=== PATIENT | female | born 1975 | race Caucasian/White ===

== ENCOUNTER 2018-04-13 22:27 | Observation (INO) | payer MEDICARE, MEDICAID ==
[2018-04-13] MEDS ORDERED: HYDROmorphone 1 MG/ML Syringe IVPUSH ONE (23:01)
[2018-04-13] MEDS ORDERED: Ketorolac 30 MG/ML SDV IVPUSH ONE (23:01)
--- NOTE | 2018-04-13 23:07 | EDM.PDOC ---
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 She thinks it is an ovarian cyst as she has had them before. She has alsohad kidney stones before but says this feels more like the cyst. She feels pressure and dysuria. She has taken oxycodone and aleve but not helping. 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: Other Medication(s) Other Treatments POEM WRITER: oxycodone - Related Data Allergies Allergy/AdvReac Type Severity Reaction Status Date / Time aspirin Allergy UNKNOWN Verified 04/13/18 22:29 barium iodide [Barium Iodide] Allergy UNKNOWN Verified 04/13/18 22:29 codeine Allergy UNKNOWN Verified 04/13/18 22:29 cortisone [Cortisone] Allergy UNKNOWN Verified 04/13/18 22:29 erythromycin base Allergy UNKNOWN Verified 04/13/18 22:29 [Erythromycin Base] latex Allergy UNKNOWN Verified 04/13/18 22:29 Latex, Natural Rubber Allergy Other Verified 04/13/18 22:29 phenobarbital Allergy UNKNOWN Verified 04/13/18 22:29 prochlorperazine edisylate Allergy UNKNOWN Verified 04/13/18 22:29 [From Compazine] prochlorperazine maleate Allergy UNKNOWN Verified 04/13/18 22:29 [From Compazine] suture Allergy Hives Verified 04/13/18 22:29 bee sting Allergy UNKNOWN Uncoded 03/29/18 12:16 seafood Allergy UNKNOWN Uncoded 03/29/18 12:16 Home Meds: Home Meds Albuterol Sulfate [Albuterol Sulfate HFA] 2 puff IH Q6H PRN 06/17/13 [History] Albuterol/Ipratropium [Combivent] 2 puff INH QID PRN 06/17/13 [History] Amitriptyline [Elavil] 100 mg PO BEDTIME 06/17/13 [History] Calcium Carbonate/Vitamin D3 [Calcium 600 + Vit D 400] 1 each PO DAILY 06/17/13 [History] Docusate Sodium [Stool Softener] 200 mg PO DAILY 06/17/13 [History] Esomeprazole [NexIUM] 40 mg PO ACBREAKFAST 06/17/13 [History] Gabapentin [Neurontin] 800 mg PO DAILY@1100 06/17/13 [History] Multivit-Min/FA/Lycopene/Lut [Centrum Silver] 1 each PO BEDTIME 06/17/13 [ History] Ondansetron [Ondansetron ODT] 8 mg PO BID PRN 06/17/13 [History] Orphenadrine [Norflex] 100 mg PO BID 06/17/13 [History] Potassium 99 mg PO DAILY 06/17/13 [History] Pregabalin [Lyrica] 150 mg PO BEDTIME 06/17/13 [History] Ranitidine [Zantac] 150 mg PO BEDTIME 06/17/13 [History] Rizatriptan [Maxalt] 10 mg PO ASDIRECTED PRN 06/17/13 [History] Sertraline [Zoloft] 200 mg PO BEDTIME 06/17/13 [History] Torsemide [Demadex] 20 mg PO BID 06/17/13 [History] diphenhydrAMINE [Benadryl] 50 mg PO DAILY PRN 06/17/13 [History] traZODone 200 mg PO BEDTIME 06/17/13 [History] Pentosan Polysulfate Sodium [Elmiron] 100 mg PO BID 10/25/15 [History] fentaNYL [Fentanyl] 50 mcg TOP Q72H 10/25/15 [History] Gabapentin [Neurontin] 1,600 mg PO BEDTIME 03/27/16 [History] SUMAtriptan [Imitrex] 6 mg SUBCUT ONETIME PRN 03/27/16 [History] buPROPion [buPROPion XL] 300 mg PO DAILY 03/27/16 [History] Scopolamine [Transderm-Scop] 1.5 mg TRDERM Q72H PRN 03/28/16 [History] Cholecalciferol (Vitamin D3) [Vitamin D] 5,000 unit PO BID 08/28/17 [History] Fluconazole [Diflucan] 150 mg PO ASDIRECTED PRN 08/28/17 [History] Naloxegol Oxalate [Movantik] 25 mg PO DAILY 08/28/17 [History] oxyCODONE 5 mg PO TID PRN 08/28/17 [History] Oxybutynin Chloride [Oxybutynin Chloride ER] 15 mg PO BEDTIME 08/30/17 [History] Diclofenac Sodium [Voltaren] 1 gm TOP BID PRN 12/04/17 [History] Fexofenadine/Pseudoephedrine [Yokasta-D 24 Hour Tablet] 1 each PO DAILY [History] Fluticasone Propionate [Flonase] 1 spray BELEM DAILY 12/04/17 [History] Metoclopramide HCl [Reglan] 10 mg PO Q8HR PRN #10 tablet 12/04/17 [Rx] Willsons Solution 5 ml NASBOTH BID 12/04/17 [History] Past Medical History HEENT History: Reports: Impaired Vision Other HEENT History: polyps to R nostril Cardiovascular History: Reports: None Respiratory History: Reports: Asthma, Bronchitis, Recurrent Gastrointestinal History: Reports: Chronic Constipation, GERD, Hemorrhoids Genitourinary History: Reports: Neurogenic Bladder, Other (See Below) Other Genitourinary History: Periodic self cath's. 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 Oncologic (Cancer) History: Reports: Leukemia, Other (See Below) Other Oncologic History: myeloproliferic disorder Dermatologic History: Reports: Psoriasis - Infectious Disease History Infectious Disease History: Reports: Chicken Pox Other Infectious Disease History: hx of [place] 2009 - Past Surgical History Cardiovascular Surgical History: Reports: Other (See Below) GI Surgical History: Reports: Appendectomy, Cholecystectomy, Lysis of Adhesions , Other (See Below) Neurological Surgical History: Reports: Other (See Below) Musculoskeletal Surgical History: Reports: Arthroscopic Knee, Carpal Tunnel, Other (See Below) Social & Family History - Family History Family Medical History: Noncontributory - Caffeine Use Caffeine Use: Reports: None ED ROS GENERAL - Review of Systems Review Of Systems: See Below Constitutional: Denies: Fever, Malaise, Weakness HEENT: Denies: Throat Pain, Vision Change Respiratory: Denies: Shortness of Breath, Cough Cardiovascular: Denies: Chest Pain, Syncope GI/Abdominal: Reports: Abdominal Pain. Denies: Black Stool, Bloody Stool, Constipation, Diarrhea, Vomiting : Reports: Flank Pain. Denies: Dysuria, Hematuria Musculoskeletal: Reports: No Symptoms Skin: Denies: Cyanosis, Jaundice, Mottled, Pallor, Diaphoresis Neurological: Denies: Confusion, Dizziness, Seizure, Syncope, Weakness Psychiatric: Denies: Agitation ED EXAM, GI/ABD - Physical Exam Exam: See Below Exam Limited By: No Limitations General Appearance: Alert, WD/WN, No Apparent Distress Eyes: Bilateral: Normal Appearance, EOMI Ears: Normal External Exam, Hearing Grossly Normal Nose: Normal Inspection, No Blood Throat/Mouth: Normal Inspection, Normal Lips, Normal Voice, No Airway Compromise Head: Atraumatic, Normocephalic Neck: Normal Inspection, Full Range of Motion Respiratory/Chest: No Respiratory Distress, Lungs Clear, Normal Breath Sounds, No Accessory Muscle Use Cardiovascular: Regular Rate, Rhythm, No Murmur GI/Abdominal Exam: Normal Bowel Sounds, Soft, No Organomegaly, Guarding, Tender (midepigastric, periumbilical primarily and RLQ). No: Rigid Back Exam: Normal Inspection, Full Range of Motion, CVA Tenderness (L) (mild). No: CVA Tenderness (R) Extremities: Normal Inspection, Normal Range of Motion Neurological: Alert, Oriented, Normal Cognition, No Motor/Sensory Deficits Psychiatric: Normal Affect, Normal Mood, Anxious Skin Exam: Warm, Dry, Intact, Normal Color, No Rash Course - Vital Signs Last Recorded V/S: Last Vital Signs Temp 98.3 F 04/14/18 11:00 Pulse 83 04/14/18 11:00 Resp 20 04/14/18 11:00 BP 88/52 L 04/14/18 11:00 Pulse Ox 93 L 04/14/18 11:00 - Orders/Labs/Meds Orders: Active Orders 24 hr Category Date Time Status Abdomen Pelvis w Cont [CT] Stat Exams 04/13/18 23:50 Taken UA W/MICROSCOPIC [URIN] Stat Lab 04/13/18 22:50 Ordered Labs: Laboratory Tests 04/13/18 Range/Units 10:45 Lipase 76 (73-393) U/L Meds: Medications Discontinued Medications Generic Name Dose Route Start Last Admin Trade Name Noemi PRN Reason Stop Dose Admin Hydromorphone HCl 1 mg 04/13/18 23:01 Dilaudid IVPUSH 04/13/18 23:02 ONETIME ONE Sodium Chloride 50 mls @ 3 mls/sec 04/14/18 10:26 Normal Saline IV 04/14/18 10:27 ASDIRECTED ONE Iopamidol 75 ml 04/14/18 00:10 04/14/18 11:07 Isovue-370 (76%) IVPUSH 04/14/18 00:11 75 ml ONETIME ONE Administration Ketorolac Tromethamine 30 mg 04/13/18 23:01 Toradol IVPUSH 04/13/18 23:02 ONETIME ONE - Re-Assessments/Exams Free Text/Narrative Re-Assessment/Exam: 04/13/18 23:06 She has had US and CT showing the cysts she says but sometimes they don't show if ruptured. We have reports from last August CT and US showing free fluid in pelvis but no cyst. Will get CT now. Giving Dilaudid and toradol. 04/14/18 13:43 Computers were down last evening when patient was transferred to observation on the floor. But she wasn't getting adequate relief of pain after Toradol 30 mg IV and two doses of Dilaudid 1 mg IV. We discussed findings and treatment options and decided to admit for observation. Patient stable throughout ER course. Departure - Departure Time of Disposition: 01:30 Disposition: Refer to Observation Condition: Good Clinical Impression: Abdominal pain Qualifiers: Abdominal location: left upper quadrant Qualified Code(s): R10.12 - Left upper quadrant pain - Discharge Information - My Orders Last 24 Hours: My Active Orders 04/13/18 22:50 UA W/MICROSCOPIC [URIN] Stat 04/13/18 23:50 Abdomen Pelvis w Cont [CT] Stat - Assessment/Plan Last 24 Hours: My Active Orders 04/13/18 22:50 UA W/MICROSCOPIC [URIN] Stat 04/13/18 23:50 Abdomen Pelvis w Cont [CT] Stat
[2018-04-13] MEDS ORDERED: HYDROmorphone 1 MG/ML Syringe ONE (23:20)
[2018-04-13] MEDS ORDERED: Ketorolac 30 MG/ML SDV ONE (23:21)
[2018-04-14] MEDS ORDERED: Iopamidol 755 Mg/ML 75 ML Bottle IVPUSH ONE (00:10)
[2018-04-14] MEDS ORDERED: HYDROmorphone 1 MG/ML Syringe IVPUSH ONE ×2 (01:11→02:00)
[2018-04-14] MEDS ORDERED: HYDROmorphone 1 MG/ML Syringe ONE (01:11)
[2018-04-14] MEDS ORDERED: Polyethylene Glycol 3350 Powder 17 GM Packet PO ONE (02:00)
[2018-04-14] MEDS ORDERED: diphenhydrAMINE 25 MG Cap PO ONE (02:00)
[2018-04-14] MEDS ORDERED: Ondansetron 4 MG/2 ML SDV IVPUSH ONE (02:00)
[2018-04-14] MEDS ORDERED: Ondansetron 4 MG/2 ML SDV IVPUSH SCH (08:45)
[2018-04-14 10:20] LABS: CHLORIDE,CL 102 mmol/L (98-115); SODIUM,NA 143 mmol/L (136-145)
[2018-04-14] MEDS ORDERED: Sodium Chloride 0.9% 50 ML IV ONE (10:26)
[2018-04-14 13:16] VITALS: BP 88/52
--- NOTE | 2018-04-14 14:14 | PCM.DCSUM1 ---
Discharge Summary - Hospital Course Free Text/Narrative:: Patient was admitted through ER for uncontrolled abdominal pain presumed to be due to ovarian cysts. She had Toradol and two doses of Dilaudid while in ER which didn't bring pain down adequately so she was admitted for observation and pain control. Through the rest of the night she only required one additional dose of Dilaudid and is now comfortable. She says the pain is gone and would like to go home. On questioning, she thinks she typically gets these symptoms about every other month which would suggest correlation with her single ovary. - Discharge Data Discharge Date: 04/14/18 Discharge Disposition: Home, Self-Care 01 Condition: Good - Patient Instructions Diet: Usual Diet as Tolerated Activity: As Tolerated Driving: May Drive Today Showering/Bathing: May Shower - Discharge Plan Home Medications: Home Meds Albuterol Sulfate [Albuterol Sulfate HFA] 2 puff IH Q6H PRN 06/17/13 [History] Albuterol/Ipratropium [Combivent] 2 puff INH QID PRN 06/17/13 [History] Amitriptyline [Elavil] 100 mg PO BEDTIME 06/17/13 [History] Calcium Carbonate/Vitamin D3 [Calcium 600 + Vit D 400] 1 each PO DAILY 06/17/13 [History] Docusate Sodium [Stool Softener] 200 mg PO DAILY 06/17/13 [History] Esomeprazole [NexIUM] 40 mg PO ACBREAKFAST 06/17/13 [History] Gabapentin [Neurontin] 800 mg PO DAILY@1100 06/17/13 [History] Multivit-Min/FA/Lycopene/Lut [Centrum Silver] 1 each PO BEDTIME 06/17/13 [ History] Ondansetron [Ondansetron ODT] 8 mg PO BID PRN 06/17/13 [History] Orphenadrine [Norflex] 100 mg PO BID 06/17/13 [History] Potassium 99 mg PO DAILY 06/17/13 [History] Pregabalin [Lyrica] 150 mg PO BEDTIME 06/17/13 [History] Ranitidine [Zantac] 150 mg PO BEDTIME 06/17/13 [History] Rizatriptan [Maxalt] 10 mg PO ASDIRECTED PRN 06/17/13 [History] Sertraline [Zoloft] 200 mg PO BEDTIME 06/17/13 [History] Torsemide [Demadex] 20 mg PO BID 06/17/13 [History] diphenhydrAMINE [Benadryl] 50 mg PO DAILY PRN 06/17/13 [History] traZODone 200 mg PO BEDTIME 06/17/13 [History] Pentosan Polysulfate Sodium [Elmiron] 100 mg PO BID 10/25/15 [History] fentaNYL [Fentanyl] 50 mcg TOP Q72H 10/25/15 [History] Gabapentin [Neurontin] 1,600 mg PO BEDTIME 03/27/16 [History] SUMAtriptan [Imitrex] 6 mg SUBCUT ONETIME PRN 03/27/16 [History] buPROPion [buPROPion XL] 300 mg PO DAILY 03/27/16 [History] Scopolamine [Transderm-Scop] 1.5 mg TRDERM Q72H PRN 03/28/16 [History] Cholecalciferol (Vitamin D3) [Vitamin D] 5,000 unit PO BID 08/28/17 [History] Fluconazole [Diflucan] 150 mg PO ASDIRECTED PRN 08/28/17 [History] Naloxegol Oxalate [Movantik] 25 mg PO DAILY 08/28/17 [History] oxyCODONE 5 mg PO TID PRN 08/28/17 [History] Oxybutynin Chloride [Oxybutynin Chloride ER] 15 mg PO BEDTIME 08/30/17 [History] Diclofenac Sodium [Voltaren] 1 gm TOP BID PRN 12/04/17 [History] Fexofenadine/Pseudoephedrine [Yokasta-D 24 Hour Tablet] 1 each PO DAILY [History] Fluticasone Propionate [Flonase] 1 spray BELEM DAILY 12/04/17 [History] Metoclopramide HCl [Reglan] 10 mg PO Q8HR PRN #10 tablet 12/04/17 [Rx] Willsons Solution 5 ml NASBOTH BID 12/04/17 [History] Forms: ED Department Discharge - Discharge Summary/Plan Comment DC Time >30 min.: No Discharge Summary/Plan Comment: 1. Continue current medications as directed. 2. Follow up with your PCP in a week for recheck and to discuss options for the presumed recurrent ovarian cyst. 3. Follow up with your PCP sooner if worsening. - Patient Data Vitals - Most Recent: Last Vital Signs Temp 98.3 F 04/14/18 11:00 Pulse 83 04/14/18 11:00 Resp 20 04/14/18 11:00 BP 88/52 L 04/14/18 11:00 Pulse Ox 93 L 04/14/18 11:00 Weight - Most Recent: 225 lb Lab Results - Last 24 hrs: Laboratory Results - last 24 hr 04/13/18 04/14/18 04/14/18 Range/Units 10:45 10:45 10:45 WBC 8.18 (5.00-10.00) 10^3/uL RBC 4.82 (3.80-5.50) 10^6/uL Hgb 14.3 (12.0-16.0) g/dL Hct 42.4 (37.0-47.0) % MCV 88.0 (82.0-92.0) fL MCH 29.7 (27.0-31.0) pg MCHC 33.7 (32.0-36.0) g/dL RDW 13.1 (11.5-14.5) % Plt Count 225 (150-400) 10^3/uL MPV 8.7 (7.4-10.4) fL Immature Gran % (Auto) 0.1 (0.0-5.0) % Neut % (Auto) 49.7 L (50.0-70.0) % Lymph % (Auto) 42.5 H (20.0-40.0) % Coal % (Auto) 5.9 (2.0-8.0) % Eos % (Auto) 1.6 (1.0-3.0) % Baso % (Auto) 0.2 (0.0-1.0) % Immature Gran # (Auto) 0.01 (0.00-0.50) 10^3/uL Neut # (Auto) 4.06 (2.50-7.00) 10^3/uL Lymph # (Auto) 3.48 (1.00-4.00) 10^3/uL Coal # (Auto) 0.48 (0.10-0.80) 10^3/uL Eos # (Auto) 0.13 (0.10-0.30) 10^3/uL Baso # (Auto) 0.02 (0.00-0.10) 10^3/uL Sodium 143 (136-145) mmol/L Potassium 3.3 (3.3-5.3) mmol/L Chloride 102 (98-115) mmol/L Carbon Dioxide 30.3 (21.0-32.0) mmol/L Anion Gap 14.0 (5-15) mmol/L BUN 11 (6-25) mg/dL Creatinine 0.91 (0.51-1.17) mg/dL Est Cr Clr Drug Dosing 67.30 mL/min Estimated GFR (MDRD) > 60 mL/min Glucose 113 H (75 - 99) mg/dL Calcium 8.4 L (8.7-10.3) mg/dL Total Bilirubin 0.2 (0.2-1.0) mg/dL AST 20 (15-37) U/L ALT 26 (12-78) U/L Alkaline Phosphatase 108 (46-116) IU/L Total Protein 7.0 (6.4-8.2) g/dL Albumin 3.70 (3.00-4.80) g/dL Lipase 76 (73-393) U/L Med Orders - Current: Current Medications Discontinued Medications Hydromorphone HCl (Dilaudid) 1 mg IVPUSH ONETIME ONE Stop: 04/13/18 23:02 Hydromorphone HCl (Dilaudid) Confirm Administered Dose 1 mg .ROUTE .STK-MED ONE Stop: 04/13/18 23:21 Sodium Chloride (Normal Saline) 50 mls @ 3 mls/sec IV ASDIRECTED ONE Stop: 04/14/18 10:27 Iopamidol (Isovue-370 (76%)) 75 ml IVPUSH ONETIME ONE Stop: 04/14/18 00:11 Last Admin: 04/14/18 11:07 Dose: 75 ml Ketorolac Tromethamine (Toradol) 30 mg IVPUSH ONETIME ONE Stop: 04/13/18 23:02 Ketorolac Tromethamine (Toradol) Confirm Administered Dose 30 mg .ROUTE .STK- MED ONE Stop: 04/13/18 23:22
--- NOTE | 2018-04-14 14:19 | CT ---
[id number] CT/CT Abdomen Pelvis W IV EXAM: CT Abdomen Pelvis W IV CLINICAL DATA: ABD PAIN COMPARISON STUDY: March 29, 2018. FINDINGS: Lung bases are clear. The spleen is enlarged measuring up to 14 cm. The gallbladder surgically absent. The liver, pancreas, adrenal glands are unremarkable. Multiple punctate nonobstructing renal calculi bilaterally. No hydronephrosis or hydroureter. No suspicious renal lesions. No bowel obstruction or inflammation. Large amount of retained stool within the colon. No lymphadenopathy, free fluid, or pneumoperitoneum. Scattered changes of spondylosis the spine. No fracture or osseous lesion. IMPRESSION: 1. Large amount of retained stool within the colon. Correlate for signs of constipation. Dewey Wyatt DO 04/14/18 1043 Thank you for allowing us to participate in the care of your patient.
[2018-04-17] MEDS ORDERED: HYDROmorphone 1 MG/ML Syringe IVPUSH ONE (11:57)
== END 2018-04-14 14:55 | disposition home or self-care (01) ==
LOC: KA.ED 22:27 → KA.MS 04-14 01:30
PROVIDERS: ADMIT Physician Assistant Surgical; ATTEND Internal Medicine
DX: R10.12 Left upper quadrant pain (principal); R16.1 Splenomegaly, not elsewhere classified; J45.909 Unspecified asthma, uncomplicated; K59.09 Other constipation; K21.9 Gastro-esophageal reflux disease without esophagitis; F41.9 Anxiety disorder, unspecified; F32.9 Major depressive disorder, single episode, unspecified; E55.9 Vitamin D deficiency, unspecified; C95.90 Leukemia, unspecified not having achieved remission; Z79.899 Other long term (current) drug therapy; Z88.1 Allergy status to other antibiotic agents; Z88.5 Allergy status to narcotic agent; Z88.6 Allergy status to analgesic agent; Z88.8 Allergy status to other drugs, medicaments and biological substances; Z91.040 Latex allergy status; Z91.030 Bee allergy status; Z91.013 Allergy to seafood
CPT/HCPCS: 36415; 74177; 80053; 83690; 85025; 96374; 96376; 99285; Q9967

== ENCOUNTER 2018-10-18 22:37 | Emergency (ER) | payer MEDICARE, MEDICAID ==
[2018-10-18] MEDS ORDERED: Ketorolac 60 MG/2 ML SDV IM ONE (23:11)
--- NOTE | 2018-10-18 23:15 | EDM.PDOC ---
ED HPI GENERAL MEDICAL PROBLEM - General Chief Complaint: Back Pain or Injury Stated Complaint: Rib pain that radiates to her back Time Seen by Provider: 10/18/18 23:06 Source of Information: Reports: Patient History Limitations: Reports: No Limitations - History of Present Illness INITIAL COMMENTS - FREE TEXT/NARRATIVE: Patient is a 43-year-old female who presents to the emergency department this evening with a complaint of rib pain. The pain is said to extending from anterior to posterior and from midsternal distal. Patient states approximately 3 weeks ago she was accidentally trapped between a vehicle and a camper. States that she sustained rib pain at that time but did not seek any medical attention. Patient states that this past weekend she was camping again and may have overdid herself with some lifting. Pain persisted during the week and she decided to present to the emergency department tonight. Patient is on chronic pain medication to include oxycodone and fentanyl patch. Patient has extensive visits to the ER for different pain complaints and injuries. Patient denies fever, cardiovascular, chest pain, shortness of breath, nausea, vomiting, diarrhea, abdominal pain, or any other injuries at this time. Onset: Gradual Duration: Week(s): Location: Reports: Chest, Back Quality: Reports: Ache Severity: Moderate Improves with: Reports: None Worsens with: Reports: Movement Context: Reports: Trauma Associated Symptoms: Reports: No Other Symptoms. Denies: Cough, Diaphoresis, Headaches, Nausea/Vomiting, Shortness of Breath - Related Data Allergies Allergy/AdvReac Type Severity Reaction Status Date / Time aspirin Allergy UNKNOWN Verified 09/06/18 20:53 barium iodide [Barium Iodide] Allergy UNKNOWN Verified 09/06/18 20:53 codeine Allergy UNKNOWN Verified 09/06/18 20:53 cortisone [Cortisone] Allergy UNKNOWN Verified 09/06/18 20:53 erythromycin base Allergy UNKNOWN Verified 09/06/18 20:53 [Erythromycin Base] latex Allergy UNKNOWN Verified 09/06/18 20:53 Latex, Natural Rubber Allergy Other Verified 09/06/18 20:53 phenobarbital Allergy UNKNOWN Verified 09/06/18 20:53 prochlorperazine edisylate Allergy UNKNOWN Verified 09/06/18 20:53 [From Compazine] prochlorperazine maleate Allergy UNKNOWN Verified 09/06/18 20:53 [From Compazine] suture Allergy Hives Verified 09/06/18 20:53 bee sting Allergy UNKNOWN Uncoded 09/06/18 20:53 seafood Allergy UNKNOWN Uncoded 09/06/18 20:53 Home Meds: Home Meds Albuterol Sulfate [Albuterol Sulfate HFA] 2 puff IH Q6H PRN 06/17/13 [History] Albuterol/Ipratropium [Combivent] 2 puff INH QID PRN 06/17/13 [History] Amitriptyline [Elavil] 100 mg PO BEDTIME 06/17/13 [History] Calcium Carbonate/Vitamin D3 [Calcium 600 + Vit D 400] 1 each PO DAILY 06/17/13 [History] Docusate Sodium [Stool Softener] 200 mg PO DAILY 06/17/13 [History] Esomeprazole [NexIUM] 40 mg PO ACBREAKFAST 06/17/13 [History] Gabapentin [Neurontin] 800 mg PO DAILY@1100 06/17/13 [History] Multivit-Min/FA/Lycopene/Lut [Centrum Silver] 1 each PO BEDTIME 06/17/13 [ History] Ondansetron [Ondansetron ODT] 8 mg PO BID PRN 06/17/13 [History] Orphenadrine [Norflex] 100 mg PO BID 06/17/13 [History] Potassium 99 mg PO DAILY 06/17/13 [History] Pregabalin [Lyrica] 150 mg PO BEDTIME 06/17/13 [History] Ranitidine [Zantac] 150 mg PO BEDTIME 06/17/13 [History] Rizatriptan [Maxalt] 10 mg PO ASDIRECTED PRN 06/17/13 [History] Sertraline [Zoloft] 200 mg PO BEDTIME 06/17/13 [History] Torsemide [Demadex] 20 mg PO BID 06/17/13 [History] diphenhydrAMINE [Benadryl] 50 mg PO DAILY PRN 06/17/13 [History] traZODone 200 mg PO BEDTIME 06/17/13 [History] Pentosan Polysulfate Sodium [Elmiron] 100 mg PO BID 10/25/15 [History] fentaNYL [Fentanyl] 50 mcg TOP Q72H 10/25/15 [History] Gabapentin [Neurontin] 1,600 mg PO BEDTIME 03/27/16 [History] SUMAtriptan [Imitrex] 6 mg SUBCUT ONETIME PRN 03/27/16 [History] buPROPion [buPROPion XL] 300 mg PO DAILY 03/27/16 [History] Scopolamine [Transderm-Scop] 1.5 mg TRDERM Q72H PRN 03/28/16 [History] Cholecalciferol (Vitamin D3) [Vitamin D] 5,000 unit PO BID 08/28/17 [History] Fluconazole [Diflucan] 150 mg PO ASDIRECTED PRN 08/28/17 [History] Naloxegol Oxalate [Movantik] 25 mg PO DAILY 08/28/17 [History] oxyCODONE 5 mg PO TID PRN 08/28/17 [History] Oxybutynin Chloride [Oxybutynin Chloride ER] 15 mg PO BEDTIME 08/30/17 [History] Diclofenac Sodium [Voltaren] 1 gm TOP BID PRN 12/04/17 [History] Fexofenadine/Pseudoephedrine [Yokasta-D 24 Hour Tablet] 1 each PO DAILY [History] Fluticasone Propionate [Flonase] 1 spray BELEM DAILY 12/04/17 [History] Metoclopramide HCl [Reglan] 10 mg PO Q8HR PRN #10 tablet 12/04/17 [Rx] Willsons Solution 5 ml NASBOTH BID 12/04/17 [History] Past Medical History HEENT History: Reports: Impaired Vision Other HEENT History: polyps to R nostril Cardiovascular History: Reports: None Respiratory History: Reports: Asthma, Bronchitis, Recurrent Gastrointestinal History: Reports: Chronic Constipation, GERD, Hemorrhoids Genitourinary History: Reports: Neurogenic Bladder, Other (See Below) Other Genitourinary History: Periodic self cath's. 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 Oncologic (Cancer) History: Reports: Leukemia, Other (See Below) Other Oncologic History: myeloproliferic disorder Dermatologic History: Reports: Psoriasis - Infectious Disease History Infectious Disease History: Reports: Chicken Pox Other Infectious Disease History: hx of [place] 2009 - Past Surgical History Cardiovascular Surgical History: Reports: Other (See Below) GI Surgical History: Reports: Appendectomy, Cholecystectomy, Lysis of Adhesions , Other (See Below) Neurological Surgical History: Reports: Other (See Below) Musculoskeletal Surgical History: Reports: Arthroscopic Knee, Carpal Tunnel, Other (See Below) Social & Family History - Family History Family Medical History: Noncontributory - Caffeine Use Caffeine Use: Reports: None ED ROS GENERAL - Review of Systems Review Of Systems: ROS reveals no pertinent complaints other than HPI. Constitutional: Reports: No Symptoms HEENT: Reports: No Symptoms Respiratory: Reports: No Symptoms. Denies: Shortness of Breath Cardiovascular: Reports: No Symptoms Endocrine: Reports: No Symptoms GI/Abdominal: Reports: No Symptoms : Reports: No Symptoms Musculoskeletal: Reports: Back Pain, Other (Rib pain and extends from anterior to posterior, mid sternal distal) Skin: Reports: No Symptoms Neurological: Reports: No Symptoms Psychiatric: Reports: No Symptoms Hematologic/Lymphatic: Reports: No Symptoms Immunologic: Reports: No Symptoms ED EXAM, GENERAL - Physical Exam Exam: See Below Exam Limited By: No Limitations General Appearance: Alert, WD/WN, No Apparent Distress Nose: Normal Inspection, No Blood Throat/Mouth: Normal Inspection, Normal Oropharynx, No Airway Compromise Head: Atraumatic, Normocephalic Neck: Normal Inspection, Supple, Non-Tender, Full Range of Motion Respiratory/Chest: No Respiratory Distress, Lungs Clear, Normal Breath Sounds, No Accessory Muscle Use Cardiovascular: Normal Peripheral Pulses, Regular Rate, Rhythm, No Murmur GI/Abdominal: Normal Bowel Sounds, Soft, Non-Tender, Pelvis Stable Back Exam: Other (Tenderness posterior ribs). No: CVA Tenderness (L), CVA Tenderness (R) Neurological: Alert, Oriented, Normal Cognition Psychiatric: Normal Affect, Normal Mood Skin Exam: Warm, Dry, Intact, Normal Color, No Rash Course - Radiology Interpretation Free Text/Narrative:: Chest x-ray shows no acute cardiopulmonary process or any obvious rib fractures - Re-Assessments/Exams Free Text/Narrative Re-Assessment/Exam: 10/18/18 23:33 Patient afebrile, vital signs stable, pain controlled. Patient given 60 mg Toradol IM in the ER. Patient will follow-up with PCP on Sunday Departure - Departure Time of Disposition: 23:34 Disposition: Home, Self-Care 01 Condition: Good Clinical Impression: Rib pain Chest wall contusion Qualifiers: Encounter type: initial encounter Laterality: unspecified laterality Qualified Code(s): S20.219A - Contusion of unspecified front wall of thorax, initial encounter - Discharge Information Instructions: Chest Contusion, Adult, [id number], Chest Wall Pain, Chronic Back Pain, [id number] Referrals: Flory Gee MD [Physician] - Additional Instructions: Follow-up with Dr. Jaffe on Sunday. Return to emergency department sooner if symptoms continue or worsen. Continue medication as directed - Assessment/Plan Assessment:: chest contusion Plan: Follow-up with PCP
[2018-10-18 23:28] VITALS: BP 131/79; PULSE 72
--- NOTE | 2018-10-19 10:00 | CR ---
[id number] RAD/RAD Chest PA And Lateral EXAM: FRONTAL AND LATERAL CHEST INDICATION: Rib pain. COMPARISON: August 28, 2017. DISCUSSION: Low lung volumes with basilar subsegmental atelectasis. Early infiltrates could be obscured by the volume loss. The heart is normal in size. Surgical clips overlie the mediastinum. IMPRESSION: 1. Mild bibasilar subsegmental atelectasis. David Crowder MD 10/19/18 0959 Thank you for allowing us to participate in the care of your patient.
== END 2018-10-18 23:47 | disposition home or self-care (01) ==
LOC: KA.ED 22:37
DX: S20.219A Contusion of unspecified front wall of thorax, initial encounter (principal); J45.909 Unspecified asthma, uncomplicated; K21.9 Gastro-esophageal reflux disease without esophagitis; F41.9 Anxiety disorder, unspecified; F32.9 Major depressive disorder, single episode, unspecified; Z88.1 Allergy status to other antibiotic agents; Z91.040 Latex allergy status; Z88.5 Allergy status to narcotic agent; Z88.8 Allergy status to other drugs, medicaments and biological substances; Z91.030 Bee allergy status; Z91.013 Allergy to seafood; Z91.048 Other nonmedicinal substance allergy status; Z79.899 Other long term (current) drug therapy; V09.9XXA Pedestrian injured in unspecified transport accident, initial encounter
CPT/HCPCS: 71046; 96372; 99283; J1885; 99284